=== PATIENT | male | born 1945 | race Caucasian/White ===

== ENCOUNTER 2017-12-17 05:02 | Emergency (ER) | payer OTHER ==
[~2017-12-17] VITALS: Ht 188 cm; Wt 99.8 kg
[2017-12-17 05:19] VITALS: BP 120/71
[2017-12-17] MEDS ORDERED: SODIUM CHLORIDE 0.9% 500 ML IV ONE (05:47)
[2017-12-17] MEDS ORDERED: HYDROmorphone HCL 2 MG/ML VL ONE (06:02)
[2017-12-17] MEDS ORDERED: ONDANSETRON HCL 4 MG/2 ML VIAL IV ONE (06:15)
[2017-12-17] MEDS ORDERED: HYDROmorphone HCL 2 MG/ML VL IV ONE (06:15)
== END 2017-12-17 06:28 | disposition home or self-care (01) ==
LOC: EDBD 05:02 → ER 05:02
DX: K59.00 Constipation, unspecified (principal); Z53.21 Procedure and treatment not carried out due to patient leaving prior to being seen by health care provider
CPT/HCPCS: 99281; J1170; J2405; 96374; 96375

== ENCOUNTER 2019-01-18 01:47 | Emergency (ER) | payer OTHER ==
[~2019-01-18] VITALS: Ht 182.9 cm; Wt 104.3 kg
[2019-01-18 01:47] VITALS: BP 0/0
[2019-01-18] MEDS ORDERED: CALCIUM CHLOR(10%) 100MG/ML 10ML SYRINGE IV ONE (01:48)
[2019-01-18] MEDS ORDERED: SODIUM BICARBONATE 8.4% INJ 50ML SYRINGE IV ONE (01:48)
[2019-01-18] MEDS ORDERED: EPINEPHrine HCL 1 MG/10 ML SYRG IV ONE (01:48)
[2019-01-18] MEDS ORDERED: SODIUM BICARBONATE 8.4% INJ 50ML SYRINGE ONE (01:59)
== END 2019-01-18 08:14 | disposition expired ==
LOC: ER 01:47 → EDBD 01:47 → EDUNIT# 01:47 → ER 08:14
DX: I46.9 Cardiac arrest, cause unspecified (principal); J44.9 Chronic obstructive pulmonary disease, unspecified; I11.0 Hypertensive heart disease with heart failure; I50.9 Heart failure, unspecified; E11.9 Type 2 diabetes mellitus without complications; G89.4 Chronic pain syndrome
CPT/HCPCS: 82962; 92950; 99285; J0171